=== PATIENT | female | born 1970 | race Caucasian/White ===

== ENCOUNTER → 2017-01-04 | Outpatient (CLI) | payer OTHER | END | disposition home or self-care (01) | LOC: LAB.O 07:22 | PROVIDERS: ATTEND Physician Assistant Medical | DX: N94.3 Premenstrual tension syndrome (principal); R53.83 Other fatigue ==

== ENCOUNTER 2017-07-28 14:01 | Emergency (ER) | payer OTHER ==
[2017-07-28 14:08] VITALS: TEMP 98.9
--- NOTE | 2017-07-28 14:31 | ED.PDOC ---
History of Present Illness - General Chief Complaint: Cardiovascular Problem Stated Complaint: Visual change (R) eye, light-headedness Time Seen by Provider: 07/28/17 14:23 Source: patient Exam Limitations: no limitations - History of Present Illness Initial Comments: patient comes in today for several issues. Patient states about 11:30 she had an episode of blurry vision that lasted approximately 30 minutes. It was on both eyes there is no pain or trauma associated with it and it resolved on its own. However, after that she noticed that her left arm was somewhat numb and weak. That resolved by itself as well over several minutes that she had noted that she could feel her heart beating faster than it normally would although she denies overt chest pain. Patient states she had this happen several years ago with the blurry vision but it resolved on its own and when she was seen in the clinic by nurse practitioner they felt that it was psychologically driven as her father has recently had a stroke. Patient states she is otherwise been healthy but she just doesn't feel right. She states although she is a little bit lightheaded is more of a feeling of not being able to focus since all of this occurred earlier today. She has a little bit of nausea but no emesis, diaphoresis, shortness of breath. She been healthy prior to this that she denies any fever, chills, cough, cold symptoms, or diarrhea. Patient has no family history of coronary artery disease prior to age 55 and a malar prior to age 65 and a female. She has no history of neurological disorders including multiple sclerosis. Patient denies any history of recurrent clots, PEs, or DVTs. She herself has no medical history. Patient takes no medication. She does not smoke or do drugs and drinks very rarely. She has had tubal ligation, C-sections, gallbladder surgery but nothing recently with no change in activity noted. She does not take supplements [id number]. Currently most the symptoms are resolved with the exception of feeling that her heart is beating more strongly than normal and that her head does not feel normal. She did notice she had a scleral hemorrhage on the right side that occurred sometime throughout the day as well. Timing/Duration: 1-3 hours Severity: mild Improving Factors: nothing Worsening Factors: nothing Associated Symptoms: nausea/vomiting Allergies/Adverse Reactions: Allergies NO KNOWN ALLERGY Allergy (Verified 07/28/17 14:16) Home Medications: Ambulatory Orders Progesterone Micronized [Progesterone] 100 mg PO DAILY 07/28/17 Vitamin D & K [K2 Plus D3 100-1000 Mcg-Unit] 1 tab PO DAILY 07/28/17 Review of Systems - Review of Systems Constitutional: States: no symptoms reported. Denies: chills, diaphoresis, fever, malaise EENTM: States: blurred vision. Denies: eye pain, double vision, ear pain, ear discharge, nose pain, nose congestion, throat pain Respiratory: States: no symptoms reported. Denies: cough, short of breath, wheezing Cardiology: States: see HPI. Denies: chest pain, edema, palpitations, syncope Gastrointestinal/Abdominal: States: nausea. Denies: abdominal pain, constipation, diarrhea, vomiting Genitourinary: States: no symptoms reported Musculoskeletal: States: see HPI Neurological: States: see HPI Past Medical History (General) - Patient Medical History Hx Stroke: No Hx Congestive Heart Failure: No Hx Diabetes: No Surgical History: cholecystectomy, other - Vaccination History Hx Influenza Vaccination: No Hx Pneumococcal Vaccination: No - Social History Hx Tobacco Use: No - Female History Patient is a Female of Child Bearing Age (10 -59 yrs old): Yes Family Medical History - Family History Mother Family History: No Known Physical Exam - Physical Exam General Appearance: Anxious, No apparent distress Eye Exam: right other - medial scleral hemorrhage R, bilateral normal Ears, Nose, Throat: hearing grossly normal, normal ENT inspection, normal pharynx Neck: non-tender, full range of motion, supple, normal inspection Respiratory: chest non-tender, lungs clear, normal breath sounds, no respiratory distress Cardiovascular/Chest: normal peripheral pulses, regular rate, rhythm, no edema, no gallop, no JVD, no murmur Peripheral Pulses: radial,right: 2+, radial,left: 2+, dorsalis pedis,right: 2+, dorsalis pedis,left: 2+ Gastrointestinal/Abdominal: normal bowel sounds, non tender, soft, no organomegaly Extremity: normal range of motion Neurologic: music educator II-XII nml as tested, no motor/sensory deficits, alert, normal mood/affect, oriented x 3 DTR: 2+: Biceps, left, Biceps, right, Patellar, left, Patellar, right Skin Exam: normal color Progress - Progress Progress: 07/28/17 15:49 07/28/17 14:30 EKG STAT Laboratory Results WBC 8.7 K/mm3 (4.8-10.8) 07/28/17 14:35 RBC 4.47 M/mm3 (4.20-5.40) 07/28/17 14:35 Hgb 13.6 gm/dL (12.0-16.0) 07/28/17 14:35 Hct 39.9 % (36.0-47.0) 07/28/17 14:35 MCV 89.2 fl (81.0-99.0) 07/28/17 14:35 MCH 30.4 pg (27.0-31.0) 07/28/17 14:35 MCHC 34.1 g/dL (33.0-37.0) 07/28/17 14:35 RDW 13.3 % (11.5-14.5) 07/28/17 14:35 Plt Count 274 K/mm3 (130-400) 07/28/17 14:35 MPV 7.2 fl (7.40-10.4) L 07/28/17 14:35 Absolute Neuts (auto) 6.10 K/uL (1.8-6.8) 07/28/17 14:35 Absolute Lymphs (auto) 1.90 K/uL (1.0-3.4) 07/28/17 14:35 Absolute Monos (auto) 0.50 K/uL (0.2-0.8) 07/28/17 14:35 Absolute Eos (auto) 0.10 K/uL (0.0-0.4) 07/28/17 14:35 Absolute Basos (auto) 0.10 K/uL (0.0-0.1) 07/28/17 14:35 Neutrophils % 70.1 % (42.0-78.0) 07/28/17 14:35 Lymphocytes % 21.5 % (20.0-50.0) 07/28/17 14:35 Monocytes % 5.8 % (2.0-9.0) 07/28/17 14:35 Eosinophils % 1.6 % (1.0-5.0) 07/28/17 14:35 Basophils % 1.0 % (0.0-2.0) 07/28/17 14:35 ESR 12 mm/hr (0-25) 07/28/17 14:35 Sodium 139 mmol/L (135-145) 07/28/17 14:35 Potassium 3.3 mmol/L (3.6-5.0) L 07/28/17 14:35 Chloride 102 mmol/L (101-111) 07/28/17 14:35 Carbon Dioxide 27 mmol/L (21-31) 07/28/17 14:35 Anion Gap 13.3 (12-18) 07/28/17 14:35 BUN 9 mg/dL (7-18) 07/28/17 14:35 Creatinine 0.79 mg/dL (0.6-1.3) 07/28/17 14:35 BUN/Creatinine Ratio 11.4 (10-20) 07/28/17 14:35 Random Glucose 98 mg/dL (70-105) 07/28/17 14:35 Serum Osmolality 276.2 mOsm/L (275-295) 07/28/17 14:35 Calcium 9.2 mg/dL (8.4-10.2) 07/28/17 14:35 Total Bilirubin 0.7 mg/dL (0.2-1.0) 07/28/17 14:35 AST 16 IU/L (10-42) 07/28/17 14:35 ALT 12 IU/L (10-60) 07/28/17 14:35 Alkaline Phosphatase 56 IU/L (42-121) 07/28/17 14:35 Troponin I < 0.02 ng/mL (0.01-0.05) 07/28/17 14:35 Serum Total Protein 7.1 gm/dL (6.4-8.2) 07/28/17 14:35 Albumin 3.8 g/dl (3.2-5.5) 07/28/17 14:35 Globulin 3.3 gm/dL (2.3-3.5) 07/28/17 14:35 Albumin/Globulin Ratio 1.2 (1.1-1.9) 07/28/17 14:35 TSH 1.19 uIU/mL (0.34-5.60) 07/28/17 14:35 Serum HCG, Qual Negative 07/28/17 14:35 Urine Color Yellow (Yellow) 07/28/17 14:26 Urine Appearance Clear (Clear) 07/28/17 14:26 Urine pH 7.0 (4.5-7.8) 07/28/17 14:26 Ur Specific [place] 1.010 (1.005-1.030) 07/28/17 14:26 Urine Protein Negative mg/dL 07/28/17 14:26 Urine Glucose (UA) Negative mg/dL (Negative) 07/28/17 14:26 Urine Ketones Negative mg/dL (NEGATIVE) 07/28/17 14:26 Urine Blood Trace-lysed (Negative) H 07/28/17 14:26 Urine Nitrite Negative 07/28/17 14:26 Urine Bilirubin Negative (NEGATIVE) 07/28/17 14:26 Urine Urobilinogen 0.2 mg/dL (0.2-1.0) 07/28/17 14:26 Ur Leukocyte Esterase Negative (Negative) 07/28/17 14:26 Urine RBC 0-1 /hpf 07/28/17 14:26 Urine WBC 0-1 /hpf 07/28/17 14:26 Ur Epithelial Cells 1-3 /hpf 07/28/17 14:26 Urine Bacteria 2+ H 07/28/17 14:26 CT Head: normal 07/28/17 15:50 Patient is currently asymptomatic and doing well. Discussed need to follow up with PCP and may require neuro out patient work up as this is second episode 07/28/17 15:53 - EKG/XRAY/CT EKG: Sinus, Tachy, no ST T wave changes Comments: normal QTC and normal axis Departure - Departure Clinical Impression: Arm paresthesia, left Disposition: Discharge to Home or Self Care Condition: Good Departure Forms: ED Discharge - Pt. Copy, Patient Portal Self Enrollment Instructions: DI for Chest Pain Diet: regular diet Activity: walking as tolerated Referrals: Zurdo Sarah MD [Primary Care Provider] - 1-2 Weeks Home Medications: Ambulatory Orders Progesterone Micronized [Progesterone] 100 mg PO DAILY 07/28/17 Vitamin D & K [K2 Plus D3 100-1000 Mcg-Unit] 1 tab PO DAILY 07/28/17 Additional Instructions: workup today is negative and patient is asymptomatic at time of discharge. However, she has had more than one episode now of visual disturbance and we've encouraged her to follow up with her primary care doctor in 4-5 days to discuss possible neurological consultation or workup. Return to ER for return of symptoms, altered LOC, or chest pain.
--- NOTE | 2017-07-28 15:17 | CT ---
EXAM DESCRIPTION: Head CLINICAL HISTORY: parathesias, visual changes COMPARISON: None available TECHNIQUE: Noncontrast head CT was performed with routine protocol. FINDINGS: Normal sadler-white matter differentiation. Ventricles and sulci are normal for age. No high density hemorrhage, focal edema or shift of the midline. No sulcal effacement. Normal orbital contents. Basilar cisterns appear clear. Intact calvarium with no fracture or lytic lesion. Normal aeration of tympanic cavities and mastoid air cells. No fluid levels in the paranasal sinuses. Skull base appears intact. Symmetrical internal auditory canals. Coronal and sagittal reformatted images confirm the findings. IMPRESSION: No acute intracranial pathologic process. This exam was performed according to our departmental dose-optimization program, which includes automated exposure control, adjustment of the mA and/or kV according to patient size and/or use of iterative reconstruction technique. Total DLP equals 752.48 mGycm. Electronically signed by: Davis Euceda MD 07/28/2017 3:15 PM CDT
[2017-07-28 15:32] VITALS: O2SAT 99
[2017-07-28 16:05] VITALS: BP 158/66
== END 2017-07-28 16:05 | disposition home or self-care (01) ==
LOC: ER 14:01
DX: R20.2 Paresthesia of skin (principal); H53.8 Other visual disturbances; R30.0 Dysuria

== ENCOUNTER → 2017-08-31 | Outpatient (CLI) | payer OTHER ==
--- NOTE | 2017-08-31 09:46 | MRI ---
CLINICAL HISTORY: 47 years Female, BLURRY VISION COMPARISON: CT head dated 07/28/2017. TECHNIQUE: Multiplanar multiecho imaging of the brain was performed after the administration of intravenous contrast. FINDINGS: No acute major vascular territorial infarct or acute intraparenchymal hemorrhage. No intra-axial or extra-axial fluid collections are identified. No space-occupying lesion is identified. The cisterns and ventricles appear normal in caliber. The sella and suprasellar regions demonstrate no gross abnormality. The structures of the posterior fossa are intact. Minimal periventricular white matter changes are identified. The visualized paranasal sinuses and mastoid air cells appear normal. The globes are intact bilaterally. Review of the bones demonstrates no gross abnormality. IMPRESSION: Minimal periventricular white matter changes. Otherwise normal MRI of the brain. Electronically signed by: Christina Morgan MD 08/31/2017 9:45 AM CDT
== END ==
LOC: MRI 07:51
PROVIDERS: ATTEND Family Medicine
DX: H53.9 Unspecified visual disturbance (principal)

== ENCOUNTER → 2020-05-15 | Outpatient (CLI) | payer BC ==
--- NOTE | 2020-05-15 18:07 | CT ---
EXAM DESCRIPTION: CT maxillofacial without contrast CLINICAL HISTORY: 49 years Female, injury of face COMPARISON: None. TECHNIQUE: 2.[address] scanning to the facial bones/paranasal sinuses was performed without contrast. Coronal and sagittal images are reformatted. FINDINGS: Soft tissue edema/hematoma of the right facial region overlying the right maxilla and zygomatic arch. Hemorrhage extends to the lower margin of the right orbit and there is mild preseptal soft tissue thickening on the right. The bilateral globes appear intact. Normal position of the lenses. Normal orbital contents. Bone window images reveal intact mandible with normal TMJ alignment. Intact skull base. The lower portion of the brain appears normal. Normal aeration of tympanic cavities and external auditory canals and mastoid air cells. Intact nasal skeleton. No fracture of the anterior or posterior maxillary sinus niño. Zygomatic arches appear intact. No fluid levels in the paranasal sinuses. Slight leftward nasal septal deviation at the level of the lower maxillary sinuses. Slight rightward nasal septal deviation more superiorly. Coronal reformatted images show symmetrical parotid and submandibular salivary glands. Posterior cervical lymph nodes are normal. On the bone window images, normal right and left ostiomeatal units. Bilateral middle nasal turbinate gaye bullosa. Clear hiatus semilunaris and middle meatus regions bilaterally. Bullous ethmoid air cell expansion narrows the frontal ethmoidal recesses. Bilateral anterior ethmoidal arterial exposure. Cribriform plate appears symmetrical. No medial or inferior orbital blowout fracture. Septation of the anterior right maxillary sinus is incidentally noted. Small mucous retention cyst inferior right maxillary sinus. Minimal mucosal thickening 1 to 2 mm inferior left maxillary sinus. Normal aeration of tympanic cavities and external auditory canals with normal position of the middle ear ossicles. Sagittal reformatted images confirm the intact mandible with no fracture. Normal nasal skeleton. IMPRESSION: Soft tissue hematoma of the right facial/right periorbital region. Negative for fracture. This exam was performed according to our departmental dose-optimization program, which includes automated exposure control, adjustment of the mA and/or kV according to patient size and/or use of iterative reconstruction technique. Electronically signed by: Davis Euceda MD 05/15/2020 6:05 PM [facility]
== END ==
LOC: CT 12:08
PROVIDERS: ATTEND Nurse Practitioner Family
DX: S09.93XA Unspecified injury of face, initial encounter (principal); S00.83XA Contusion of other part of head, initial encounter